=== PATIENT | female | born 1970 | race Caucasian/White ===

== ENCOUNTER 2025-10-11 00:50 | Emergency (ER) | payer OTHER, SELFPAY ==
[2025-10-11 00:51] VITALS: BMI 21.9
[2025-10-11 01:02] VITALS: BP 210/119; BP 216/118; PULSE 121; RESP 19; TEMP 36.7; O2SAT 97
--- NOTE | 2025-10-11 01:08 | PD.EDADULT ---
ED General RME/HPI General Chief complaint: General Adult/Misc Complain Stated complaint: HIGH BP, PAINFUL URINATION Time Seen by Provider: 10/11/25 01:08 Arrival date/time: 10/11/25 00:50 55-year-old female with a history of thyroid disorder and hypertension newly placed on medications yesterday for the HTN reports with complaint of dysuria urinary urgency and frequency and pelvic discomfort for several weeks. Patient reports trying to self treat with home remedies but admits to a failed attempt. She endorses hot and cold flashes but denies fever nausea or vomiting hematuria chest pain shortness of breath or abdominal pain.. Limitations: no limitations Related Data Home Medications ?Medication ?Instructions ?Recorded ?Confirmed levothyroxine 100 mcg tablet 100 mcg PO QDAY 11/29/21 11/30/21 Previous Rx's ?Medication ?Instructions ?Recorded cephalexin 500 mg capsule 500 mg PO BID 10 days #20 caps 10/11/25 Allergies Allergy/AdvReac Type Severity Reaction Status Date / Time No Known Allergies Allergy Verified 10/11/25 00:54 Review of Systems Constitutional Constitutional: Denies chills, Denies fever(s) and Denies headache(s) ENT Ears, Nose, Mouth, and Throat: Denies headache(s) and Denies vertigo Cardiovascular Cardiovascular: Denies chest pain and Denies dyspnea Respiratory Respiratory: Denies cough and Denies dyspnea Gastrointestinal Gastrointestinal: Denies abdominal pain, Denies nausea and Denies vomiting Genitourinary Genitourinary: Reports dysuria, Denies hematuria and Reports urinary urgency Musculoskeletal Musculoskeletal: Denies back pain and Denies myalgias Integumentary/Breasts Skin/Breast: Denies rash and Denies skin pain Neurologic Neurologic: Denies headache(s) and Denies vertigo Past Medical History Past Medical History NEUROLOGIC: Negative Neurological Disorders or Seizures CARDIAC: Positive Cardiac Disorders and Hypercholesterolemia (NO MEDS); Negative Congestive Heart Failure RESPIRATORY: Negative Chronic Obstructive Pulmonary Disease (COPD) GASTROINTESTINAL: Negative Gastrointestinal Disorders GENITOURINARY: Negative Genitourinary Disorders or Renal Disease MUSCULOSKELETAL: Negative Musculoskeletal Disorders ENDOCRINE: Positive Endocrine Disorders and Hypothyroidism; Negative Diabetes Mellitus Type 1 or Diabetes Mellitus Type 2 HEMATOLOGIC: Negative Blood Disorders or Anemia OTHER HISTORY: Positive Chicken Pox; Negative Autoimmune Disease, Blood Transfusions, Blood Transfusion Reaction or Anesthesia Reactions Surgical History SURGICAL: Positive Abdominal Surgery and Tubal Ligation (1995) Social History SMOKING STATUS: Never smoker ED Exam General Limitations: Present no limitations General appearance: Present alert and in no apparent distress Head Head exam: Present atraumatic Eye Eye exam: Present normal appearance, PERRL and EOMI ENT ENT exam: Present normal exam, normal oropharynx and mucous membranes moist Neck Neck exam: Present normal inspection, full ROM and trachea midline Chest Chest inspection: Present normal inspection and symmetric chest wall rise Respiratory Respiratory exam: Present normal lung sounds bilaterally Cardiovascular Cardiovascular exam: Present regular rate, normal rhythm and normal heart sounds Abdominal Exam Abdominal exam: Present soft, tenderness and normal bowel sounds; Absent distention, guarding, rebound, mass, bruit or hernia Abdominal tenderness: Present suprapubic and mild Extremities Exam Extremities exam: Present normal inspection and full ROM Back Exam Back exam: Present normal inspection and full ROM Neurological Exam Neurological exam: Present alert, oriented X3 and CN II-XII intact Psychiatric Psychiatric exam: Present normal affect and normal mood Skin Skin exam: Present warm, dry, intact and normal color Course Quality Measures none Orders Category Date Time Status UA, C/S IF [Urinalysis, C/S if Indicated] Stat Lab 10/11/25 01:29 Completed Urine Culture Stat Lab 10/11/25 01:29 Received Vital Signs Vital signs: Vital Signs Temperature 98.1 F 10/11/25 01:02 Pulse Rate 121 H 10/11/25 01:02 Respiratory Rate 19 10/11/25 01:02 Blood Pressure 216/118 H 10/11/25 01:02 Pulse Oximetry (%) 97 10/11/25 01:02 Oxygen Delivery Method Room Air 10/11/25 01:02 Discharge Plan Plan Patient Disposition: HOME (Self Care) Prescriptions/Referrals Prescriptions/Med Rec: New cephalexin 500 mg capsule 500 mg PO BID 10 Days Qty: 20 0RF No Action levothyroxine 100 mcg tablet 100 mcg PO QDAY Patient Comments: take 1 tablet by mouth once daily Referrals: Gloria Paiz MD [Primary Care Provider] - In 1 week Problem List Clinical Impression: Acute cystitis, Elevated blood pressure reading Patient/Caregiver Discharge Instructions Discharge Activity: activity as tolerated Education Materials: ED CYSTITIS Female Adult Additional Instructions: Use antibiotics as directed drink plenty of water and follow-up with your primary care provider if no improvement in 3 days for UTI. For your blood pressure continue to take your medication as directed and follow-up with your PCP as planned. If you develop symptoms such as shortness of breath chest pain shoulder neck or jaw pain return to the emergency department immediately Print Language: Colombian Stand Alone Forms: Karolyn Award Info., Patient Portal Info Letter
[2025-10-11 01:40] LABS: Collection Type, Urine Clean Catch
[2025-10-11 01:48] LABS: Amorphous Crystals,Urine Present (Absent); Bilirubin,Urine Negative (Negative); Blood,Urine Negative (Negative); Clarity,Urine Turbid (Clear/Hazy); Color,Urine Lt-Yellow (Lt Yel-Yel); Culture Indicated,Urine Yes; Glucose, Urine Negative (Negative); Ketones,Urine Trace (Negative); Leukocyte Esterase,Urine Positive (Negative); Nitrite,Urine Negative (Negative); PH,Urine 6.0 (5.0-7.0); Protein,Urine 2+ (Neg - Trace); RBC,Urine 42 /hpf (0-3); Specific Gravity,Urine 1.023 (1.001-1.035); Squamous Epithelial Cell,Urine 3 /hpf (0-5); Transitional Epi Cells,Urine 1 /hpf (0-5); Urobilinogen,Urine Negative mg/dL (0.0-1.0); WBC,Urine 174 /hpf (0-5)
== END 2025-10-11 02:52 | disposition home or self-care (01) ==
PROVIDERS: Emergency Provider Physician Assistant; PCP Internal Medicine
DX: N30.00 Acute cystitis without hematuria (principal); R03.0 Elevated blood-pressure reading, without diagnosis of hypertension
CPT/HCPCS: 81001; 87086; 96372; 99282; J0696; J3490